=== PATIENT | female | born 1980 | race Caucasian/White ===

== ENCOUNTER 2016-07-18 08:16 | Emergency (ER) | payer BC ==
[2016-07-18] MEDS ORDERED: SODIUM CHLORIDE 0.9% 1,000 ML IV STA (08:32)
[2016-07-18] MEDS ORDERED: ONDANSETRON 4 MG/2 ML VIAL IVP STA (08:32)
--- NOTE | 2016-07-18 08:46 | ED ---
Abdominal Pain HPI - General Chief Complaint: Abdominal Pain Stated Complaint: abd pain Time Seen by Provider: 07/18/16 08:31 Source: patient, RN notes reviewed Mode of arrival: ambulatory Limitations: no limitations - History of Present Illness Initial Comments: 36-year-old female presents emergency Department chief complaint abdominal pain. Patient states she's had intermittent abdominal pain since Saturday. She states she gets a crampy feeling in her abdomen that causes diffuse pain. Patient states that she gets nauseated and has had some dry heaving/vomiting. 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 Patient denies fever, chills, melena or hematochezia. Patient's had no prior abdominal surgeries. Patient did take a test at home and states that it was negative. Patient denies any dysuria or hematuria. Patient denies any chest pain, shortness breath, flank pain. Patient states that she did try some Maalox which seemed to make her symptoms worse and she did not have a bowel movement. - Related Data Home Medications Medication Instructions Recorded Confirmed Polyethylene Glycol 3350 [Miralax] 17 gm PO DAILY PRN 07/18/16 07/18/16 Previous Rx's Medication Instructions Recorded Dicyclomine [Bentyl] 20 mg PO TID #30 tablet 07/18/16 Ondansetron Odt [Zofran Odt] 4 mg PO Q8HR PRN #10 tab 07/18/16 Allergies Allergy/AdvReac Type Severity Reaction Status Date / Time No Known Allergies Allergy Verified 07/18/16 09:01 Review of Systems ROS Statement: Those systems with pertinent positive or pertinent negative responses have been documented in the HPI. ROS Other: All systems not noted in ROS Statement are negative. Past Medical History Past Medical History: Vascular Disorder History of Any Multi-Drug Resistant Organisms: None Reported Past Surgical History: No Surgical Hx Reported Past Psychological History: No Psychological Hx Reported Smoking Status: Current every day smoker Past Alcohol Use History: Occasional Past Drug Use History: None Reported General Exam Limitations: no limitations General appearance: alert, in no apparent distress Head exam: Present: atraumatic, normocephalic, normal inspection Respiratory exam: Present: normal lung sounds bilaterally. Absent: respiratory distress, wheezes, rales, rhonchi, stridor Cardiovascular Exam: Present: regular rate, normal rhythm, normal heart sounds. Absent: systolic murmur, diastolic murmur, rubs, gallop, clicks GI/Abdominal exam: Present: soft, tenderness (Mild to moderate diffuse), normal bowel sounds. Absent: distended, guarding, rebound, rigid Back exam: Absent: CVA tenderness (R), CVA tenderness (L) Neurological exam: Present: alert, oriented X3, CN II-XII intact Skin exam: Present: warm, dry, intact, normal color. Absent: rash Course Vital Signs 07/18/16 08:22 Temperature 97.7 F Pulse Rate 97 Respiratory 18 Rate Blood Pressure 104/78 O2 Sat by Pulse 100 Oximetry Medical Decision Making - Medical Decision Making 36-year-old female presented emergency department for nausea vomiting abdominal cramping. Patient's lab work within almost. Patient does have some ketones consistent with dehydration. Patient was hydrated here and states that she's feeling better. Patient most likely has enteritis. Patient will be given Bentyl, Zofran. Return parameters were discussed. Patient agrees to plan. - Lab Data Result diagrams: 07/18/16 08:45 07/18/16 08:45 Lab Results 07/18/16 07/18/16 07/18/16 Range/Units 08:26 08:26 08:45 WBC (3.8-10.6) k/uL RBC (3.80-5.40) m/uL Hgb (11.4-16.0) gm/dL Hct (34.0-46.0) % MCV (80.0-100.0) fL MCH (25.0-35.0) pg MCHC (31.0-37.0) g/dL RDW (11.5-15.5) % Plt Count (150-450) k/uL Neutrophils % % Lymphocytes % % Monocytes % % Eosinophils % % Basophils % % Neutrophils # (1.3-7.7) k/uL Lymphocytes # (1.0-4.8) k/uL Monocytes # (0-1.0) k/uL Eosinophils # (0-0.7) k/uL Basophils # (0-0.2) k/uL Sodium 138 (137-145) mmol/L Potassium 4.8 (3.5-5.1) mmol/L Chloride 104 (98-107) mmol/L Carbon Dioxide 25 (22-30) mmol/L Anion Gap 9 mmol/L BUN 12 (7-17) mg/dL Creatinine 0.67 (0.52-1.04) mg/dL Est GFR (MDRD) Af Amer >60 (>60 ml/min/1.73 sqM) Est GFR (MDRD) Non-Af >60 (>60 ml/min/1.73 sqM) Glucose 90 (74-99) mg/dL Calcium 9.4 (8.4-10.2) mg/dL Total Bilirubin 0.6 (0.2-1.3) mg/dL AST 21 (14-36) U/L ALT 23 (9-52) U/L Alkaline Phosphatase 78 (38-126) U/L Total Protein 7.6 (6.3-8.2) g/dL Albumin 4.4 (3.5-5.0) g/dL Amylase 52 (30-110) U/L Lipase 49 (23-300) U/L Urine Color Yellow Urine Appearance Clear (Clear) Urine pH 5.5 (5.0-8.0) Ur Specific [place] 1.027 (1.001-1.035) Urine Protein 1+ H (Negative) Urine Glucose (UA) Negative (Negative) Urine Ketones 4+ H (Negative) Urine Blood Negative (Negative) Urine Nitrite Negative (Negative) Urine Bilirubin 1+ H (Negative) Urine Urobilinogen 2.0 (<2.0) mg/dL Ur Leukocyte Esterase Negative (Negative) Urine RBC <1 (0-5) /hpf Urine WBC 1 (0-5) /hpf Ur Squamous Epith Cells 1 (0-4) /hpf Urine Bacteria Rare H (None) /hpf Urine Mucus Few H (None) /hpf Urine HCG, Qual Not Detected (Not Detectd) 07/18/16 Range/Units 08:45 WBC 7.8 (3.8-10.6) k/uL RBC 4.92 (3.80-5.40) m/uL Hgb 14.7 (11.4-16.0) gm/dL Hct 44.3 (34.0-46.0) % MCV 90.2 (80.0-100.0) fL MCH 30.0 (25.0-35.0) pg MCHC 33.2 (31.0-37.0) g/dL RDW 13.2 (11.5-15.5) % Plt Count 163 (150-450) k/uL Neutrophils % 71 % Lymphocytes % 16 % Monocytes % 9 % Eosinophils % 2 % Basophils % 0 % Neutrophils # 5.6 (1.3-7.7) k/uL Lymphocytes # 1.2 (1.0-4.8) k/uL Monocytes # 0.7 (0-1.0) k/uL Eosinophils # 0.2 (0-0.7) k/uL Basophils # 0.0 (0-0.2) k/uL Sodium (137-145) mmol/L Potassium (3.5-5.1) mmol/L Chloride (98-107) mmol/L Carbon Dioxide (22-30) mmol/L Anion Gap mmol/L BUN (7-17) mg/dL Creatinine (0.52-1.04) mg/dL Est GFR (MDRD) Af Amer (>60 ml/min/1.73 sqM) Est GFR (MDRD) Non-Af (>60 ml/min/1.73 sqM) Glucose (74-99) mg/dL Calcium (8.4-10.2) mg/dL Total Bilirubin (0.2-1.3) mg/dL AST (14-36) U/L ALT (9-52) U/L Alkaline Phosphatase (38-126) U/L Total Protein (6.3-8.2) g/dL Albumin (3.5-5.0) g/dL Amylase (30-110) U/L Lipase (23-300) U/L Urine Color Urine Appearance (Clear) Urine pH (5.0-8.0) Ur Specific [place] (1.001-1.035) Urine Protein (Negative) Urine Glucose (UA) (Negative) Urine Ketones (Negative) Urine Blood (Negative) Urine Nitrite (Negative) Urine Bilirubin (Negative) Urine Urobilinogen (<2.0) mg/dL Ur Leukocyte Esterase (Negative) Urine RBC (0-5) /hpf Urine WBC (0-5) /hpf Ur Squamous Epith Cells (0-4) /hpf Urine Bacteria (None) /hpf Urine Mucus (None) /hpf Urine HCG, Qual (Not Detectd) Disposition Clinical Impression: Enteritis, Mild dehydration Disposition: HOME SELF-CARE Condition: Stable Instructions: Enteritis (ED) Additional Instructions: Please return to the Emergency Department if symptoms worsen or any other concerns. Prescriptions: Dicyclomine [Bentyl] 20 mg PO TID #30 tablet Ondansetron Odt [Zofran Odt] 4 mg PO Q8HR PRN #10 tab PRN Reason: Nausea Time of Disposition: 09:44
[2016-07-18 09:03] LABS: Basophils % (A) 0 %; CH 30.4; CHCM 33.9; Eosinophils # (A) 0.2 k/uL (0-0.7); Eosinophils % (A) 2 %; HCT 44.3 % (34.0-46.0); HGB 14.7 gm/dL (11.4-16.0); Luc # (Auto) 0.15; Luc % (Auto) 2; Lymphocytes # (A) 1.2 k/uL (1.0-4.8); Lymphocytes % (A) 16 %; MCHC 33.2 g/dL (31.0-37.0); MCV 90.2 fL (80.0-100.0); Mean Platelet Volume 7.6; Monocytes # (A) 0.7 k/uL (0-1.0); Monocytes % (A) 9 %; Neutrophils # (A) 5.6 k/uL (1.3-7.7); Neutrophils % (A) 71 %; RBC 4.92 m/uL (3.80-5.40); RDW 13.2 % (11.5-15.5); WBC 7.8 k/uL (3.8-10.6); WBC (Perox) 7.36
[2016-07-18 09:21] LABS: Appearance,Urine Clear (Clear); Bacteria,Urine Rare /hpf; Bilirubin,Urine 1+ (Negative); Glucose,Urine (UA) Negative (Negative); Ketones,Urine 4+ (Negative); Leukocyte Esterase,Urine Negative (Negative); Mucus,Urine Few /hpf; Nitrite,Urine Negative (Negative); PH, Urine 5.5 (5.0-8.0); Particle Count 9934; Protein,Urine 1+ (Negative); RBC,Urine <1 /hpf (0-5); Specific Gravity,Urine 1.027 (1.001-1.035); Squamous Epithelial Cell,Urine 1 /hpf (0-4); UA Billing (MACRO vs. MICRO) MICRO; WBC,Urine 1 /hpf (0-5)
[2016-07-18 09:22] LABS: ALT 23 U/L (9-52); AST 21 U/L (14-36); Alkaline Phosphatase 78 U/L (38-126); Amylase 52 U/L (30-110); Anion Gap 9 mmol/L; Blood Urea Nitrogen 12 mg/dL (7-17); Calcium 9.4 mg/dL (8.4-10.2); Carbon Dioxide 25 mmol/L (22-30); Chloride 104 mmol/L (98-107); Glucose 90 mg/dL (74-99); Non-African American GFR(MDRD) >60 (>60 ml/min/1.73 sqM); Potassium 4.8 mmol/L (3.5-5.1); Sodium 138 mmol/L (137-145); Total Bilirubin 0.6 mg/dL (0.2-1.3); Total Protein 7.6 g/dL (6.3-8.2)
--- NOTE | 2016-07-18 09:31 | XR ---
EXAMINATION TYPE: XR KUB DATE OF EXAM: 07/18/2016 9:24 AM COMPARISON: NONE HISTORY: Abdominal pain and vomiting TECHNIQUE: One view abdominal series FINDINGS: The osseous structures are intact. The bowel gas pattern is nonspecific. Lung bases are clear. Calc ification pelvis compatible with phleboliths. IMPRESSION: 1. Nonspecific abdomen.
[2016-07-18 09:54] VITALS: BP 106/67; PULSE 80; RESP 16; TEMP 98.7
== END 2016-07-18 09:53 | disposition home or self-care (01) ==
LOC: EC 08:16
DX: K52.9 Noninfective gastroenteritis and colitis, unspecified (principal); E86.0 Dehydration; F17.200 Nicotine dependence, unspecified, uncomplicated
CPT/HCPCS: 36415; 80053; 82150; 83690; 85025; 81001; 81025; 74000; 99284; 96374; 96361; J2405

== ENCOUNTER 2018-11-25 08:57 | Emergency (ER) | payer BC ==
[2018-11-25 09:10] VITALS: RESP 18
[2018-11-25] MEDS ORDERED: HYDROcodone/APAP 5-325MG 1 EACH TAB PO STA (09:57)
--- NOTE | 2018-11-25 10:22 | CT ---
EXAMINATION TYPE: CT lumbar spine wo con DATE OF EXAM: 11/25/2018 COMPARISON: None HISTORY: 38-year-old female Back injury TECHNIQUE: Contiguous axial scanning of the lumbar spine without IV contrast. Coronal and sagittal re constructions performed. CT DLP: 753.1 mGycm Automated exposure control for dose reduction was used. FINDINGS: Vertebral body heights are preserved and alignment is maintained. Facet arthropathy particularly at L3-L4. Bulging discs at both L4-L5 and L5-S1 contributing to mild spinal canal stenoses. On the left, there is mild neural foraminal stenosis at L5-S1. On the right, there is more mild to moderate neural foraminal stenosis at L5-S1. Disc material may ab ut the traversing S1 nerve roots on both sides. No prevertebral or paravertebral soft tissue abnormality seen. IMPRESSION: 1. NO VERTEBRAL COMPRESSION COLLAPSE OR MALALIGNMENT. 2. BULGING DISCS AT L4-L5 AND L5-S1. AT L5-S1, THIS CONTRIBUTES TO MILD TO MODERATE RIGHT AND MILD LE FT NEUROFORAMINAL STENOSIS. DISC MATERIAL MAY ABUT THE BILATERAL TRAVERSING S1 NERVE ROOTS AT THIS LE TANYA WELL. 3. MILD SPINAL CANAL STENOSES AT L4-L5 AND L5-S1.
[2018-11-25] MEDS ORDERED: ONDANSETRON ODT 4 MG TAB PO STA (11:22)
[2018-11-25] MEDS ORDERED: LIDOCAINE 5% PATCH TOPICAL STA (11:22)
--- NOTE | 2018-11-25 11:34 | ED ---
Back Pain HPI - General Chief Complaint: Back Pain/Injury Stated Complaint: BACK INJURY, FALL, CAN'T WALK Time Seen by Provider: 11/25/18 09:24 Source: patient Mode of arrival: wheelchair Limitations: no limitations - History of Present Illness Initial Comments: The patient is a 38-year-old female presents the emergency room with reported lower back pain. The patient does report to a history of chronic back pain. States that today she was in the shower when she coughed. She felt a pop in her left lower back. The pain got intense and radiated into the lateral aspect of her left leg. She denies any weakness, numbness or tingling. States that the pain was so severe that it did cause her to sustain a partial fall. She did catch herself on the way down however did hit the edge of the tub on the left hip. She denies any blunt head trauma. No other injuries sustained. Denies any bowel or bladder incontinence. Denies any saddle anesthesia. She took Motrin and Robaxin for her pain. States that it help her symptoms somewhat. She denies any abdominal pain. No changes in bowel or bladder habits. There are no other alleviating, precipitating or modifying factors - Related Data Home Medications Medication Instructions Recorded Confirmed Ibuprofen [Motrin] 800 mg PO DAILY PRN 11/25/18 11/25/18 Methocarbamol [Robaxin] 500 mg PO DAILY PRN 11/25/18 11/25/18 Previous Rx's Medication Instructions Recorded Hydrocodone/Acetaminophen [[place] 1 tab PO Q6HR PRN #12 tab 11/25/18 5-325] Ondansetron Odt [Zofran Odt] 4 mg PO Q8HR PRN #10 tab 11/25/18 Allergies Allergy/AdvReac Type Severity Reaction Status Date / Time No Known Allergies Allergy Verified 11/25/18 09:19 Review of Systems ROS Statement: Those systems with pertinent positive or pertinent negative responses have been documented in the HPI. ROS Other: All systems not noted in ROS Statement are negative. Past Medical History Past Medical History: No Reported History History of Any Multi-Drug Resistant Organisms: None Reported Past Surgical History: No Surgical Hx Reported Past Psychological History: No Psychological Hx Reported Smoking Status: Current some day smoker Past Alcohol Use History: Occasional Past Drug Use History: None Reported General Exam Limitations: no limitations General appearance: alert, in no apparent distress Head exam: Present: atraumatic, normocephalic, normal inspection Eye exam: Present: normal appearance, PERRL, EOMI. Absent: scleral icterus, conjunctival injection, periorbital swelling ENT exam: Present: normal exam, mucous membranes moist Neck exam: Present: normal inspection. Absent: tenderness, meningismus, lymphadenopathy Respiratory exam: Present: normal lung sounds bilaterally. Absent: respiratory distress, wheezes, rales, rhonchi, stridor Cardiovascular Exam: Present: regular rate, normal rhythm, normal heart sounds. Absent: systolic murmur, diastolic murmur, rubs, gallop, clicks GI/Abdominal exam: Present: soft, normal bowel sounds. Absent: distended, tenderness, guarding, rebound, rigid Extremities exam: Present: normal inspection, full ROM, normal capillary refill, other (5/5 muscle strength). Absent: tenderness, pedal edema, joint swelling, calf tenderness Back exam: Present: paraspinal tenderness (left sided L2-L5, tenderness to left SI joint. No step offs or deformities. positive straight leg raise left. 5/5 muscle strength in the b/l le. 2+ DP and PT pulses) Neurological exam: Present: alert, oriented X3, CN II-XII intact Psychiatric exam: Present: normal affect, normal mood Skin exam: Present: warm, dry, intact, normal color. Absent: rash Course Vital Signs 11/25/18 11/25/18 09:07 11:59 Temperature 98.0 F 98.2 F Pulse Rate 85 71 Respiratory 18 18 Rate Blood Pressure 108/74 111/75 O2 Sat by Pulse 98 98 Oximetry Medical Decision Making - Medical Decision Making Upon arrival the patient is placed into room 9. A thorough history and physical exam was performed. The patient has no focal neurologic deficits. I did discuss diagnosis, differential and treatment options. The patient did agree to a [place]. I also provided the patient something for nausea. I did recommend a CT of the patient's lumbar spine. Upon return of the results they are discuss the patient. CT demonstrates no vertebral compression or malalignment. Bulging disks at L4-L5 and L5-S1. at L5-S1 disc injury with some [id number] right and mild left neuroforaminal stenosis. The patient does feel improved with the [place]. I discussed medication treatment for her symptoms. The patient notes does agree to a short course of [place]. She does sign an opiate start talking form. She'll also be given a prescription for Zofran. I did apply a Lidoderm patch the patient's back. She will be discharged home and is to follow-up with Dr. Rutherford for further evaluation. If the patient has any new or worsening symptoms she should return to the emergency room. The patient was discharged home in stable condition Disposition Clinical Impression: Lumbar back pain with radiculopathy affecting left lower extremity, Sciatica, Strain of lumbar region Disposition: HOME SELF-CARE Condition: Stable Instructions (If sedation given, give patient instructions): Lumbar Radiculopathy (ED) Additional Instructions: Please follow-up with your primary care doctor in 2-4 days. Return to the emergency department for any new or worsening symptoms. Prescriptions: Hydrocodone/Acetaminophen [[place] 5-325] 1 tab PO Q6HR PRN #12 tab PRN Reason: Pain Ondansetron Odt [Zofran Odt] 4 mg PO Q8HR PRN #10 tab PRN Reason: Nausea Is patient prescribed a controlled substance at d/c from ED?: Yes When asked, does pt state using other controlled substances?: No If prescribed controlled substance>3 days was MAPS reviewed?: Prescribed <3 Days If opioid is for acute pain is fill amount 7 days or less?: Yes If Rx opioid, was Start Talking consent form obtained?: Yes Referrals: Vidal Gupta MD [Primary Care Provider] - 1-2 days Gayle Rutherford DO [Doctor of Osteopathic Medicine] - 1-2 days Time of Disposition: 11:34
[2018-11-25 14:07] VITALS: BP 111/75; PULSE 71; TEMP 98.2
== END 2018-11-25 12:01 | disposition home or self-care (01) ==
LOC: EC 08:57
DX: S39.012A Strain of muscle, fascia and tendon of lower back, initial encounter (principal); M51.17 Intervertebral disc disorders with radiculopathy, lumbosacral region; M48.061 Spinal stenosis, lumbar region without neurogenic claudication; F17.200 Nicotine dependence, unspecified, uncomplicated; X50.9XXA Other and unspecified overexertion or strenuous movements or postures, initial encounter; W01.198A Fall on same level from slipping, tripping and stumbling with subsequent striking against other object, initial encounter; Y93.E1 Activity, personal bathing and showering; Y92.002 Bathroom of unspecified non-institutional (private) residence as the place of occurrence of the external cause
CPT/HCPCS: 72131; 99284

== ENCOUNTER → 2019-02-16 | Outpatient (CLI) | payer BC ==
--- NOTE | 2019-02-16 09:30 | US ---
EXAMINATION TYPE: US venous doppler duplex LE DATE OF EXAM: 02/16/2019 9:14 AM COMPARISON: NONE CLINICAL HISTORY: M79.661 pain in JOBY limbs,M79.662. SIDE PERFORMED: TECHNIQUE: The lower extremity deep venous system is examined utilizing real time linear array sonog beto with graded compression, doppler sonography and color-flow sonography. VESSELS IMAGED: External Iliac Vein (EIV) Common Femoral Vein Deep Femoral Vein Greater Saphenous Vein * Femoral Vein Popliteal Vein Small Saphenous Vein * Proximal Calf Veins (* superficial vessels) Right Leg: Negative for DVT Left Leg: Negative for DVT IMPRESSION: 1. Bilateral lower extremity ultrasound negative for deep venous thrombosis
== END | disposition home or self-care (01) ==
LOC: RADUSWWP 08:42
PROVIDERS: ATTEND Family Medicine
DX: M79.661 Pain in right lower leg (principal)
CPT/HCPCS: 93970

== ENCOUNTER 2019-10-07 04:08 | Emergency (ER) | payer BC ==
--- NOTE | 2019-10-07 04:22 | ED ---
Recheck HPI - General Chief Complaint: Nausea/Vomiting/Diarrhea Stated Complaint: Dizziness, nausea Time Seen by Provider: 10/07/19 04:15 Source: patient, RN notes reviewed, old records reviewed Mode of arrival: ambulatory Limitations: no limitations - History of Present Illness Initial Comments: This is a 31-year-old female DF for evaluation persistent nausea vomiting occasional body aches and pains. Recently off of a 10 day vacation the laceration violence. No bony or travel republican there was about 10 are feeling the same symptoms. She denies any fevers. Maybe a little flushed and sweating. Denies significant drug or alcohol abuse. No blood in the vomit or diarrhea MD Complaint: other (Patient just not feeling good regarding abdominal pain was seen at [facility] yesterday) Initial Visit For: other (Nausea and vomiting) Returns Today for: persistent/worsening pain related to initial visit Symptoms Since Prior Visit: worsening pain Associated Symptoms: chills Treatments Prior to Arrival: other (Patient seen at [facility] was given covert 19 test) - Related Data Home Medications Medication Instructions Recorded Confirmed Ibuprofen [Motrin] 800 mg PO DAILY PRN 11/25/18 11/25/18 Methocarbamol [Robaxin] 500 mg PO DAILY PRN 11/25/18 11/25/18 Previous Rx's Medication Instructions Recorded Hydrocodone/Acetaminophen [[place] 1 tab PO Q6HR PRN #12 tab 11/25/18 5-325] Ondansetron Odt [Zofran Odt] 4 mg PO Q8HR PRN #10 tab 11/25/18 Diazepam [Valium] 5 mg PO Q8H PRN 3 Days #9 tab 10/07/19 Allergies Allergy/AdvReac Type Severity Reaction Status Date / Time No Known Allergies Allergy Verified 10/07/19 04:16 Review of Systems ROS Statement: Those systems with pertinent positive or pertinent negative responses have been documented in the HPI. ROS Other: All systems not noted in ROS Statement are negative. Past Medical History Past Medical History: No Reported History History of Any Multi-Drug Resistant Organisms: None Reported Past Surgical History: No Surgical Hx Reported Past Psychological History: No Psychological Hx Reported Smoking Status: Current every day smoker Past Alcohol Use History: Occasional Past Drug Use History: None Reported General Exam Limitations: no limitations General appearance: alert, in no apparent distress, anxious Head exam: Present: atraumatic, normocephalic, normal inspection Eye exam: Present: normal appearance, PERRL, EOMI. Absent: scleral icterus, conjunctival injection, periorbital swelling ENT exam: Present: normal exam, mucous membranes moist Neck exam: Present: normal inspection. Absent: tenderness, meningismus, lymphadenopathy Respiratory exam: Present: normal lung sounds bilaterally. Absent: respiratory distress, wheezes, rales, rhonchi, stridor Cardiovascular Exam: Present: regular rate, normal rhythm, normal heart sounds. Absent: systolic murmur, diastolic murmur, rubs, gallop, clicks GI/Abdominal exam: Present: soft, normal bowel sounds. Absent: distended, tenderness, guarding, rebound, rigid Extremities exam: Present: normal inspection, full ROM, normal capillary refill. Absent: tenderness, pedal edema, joint swelling, calf tenderness Back exam: Present: normal inspection Neurological exam: Present: alert, oriented X3, CN II-XII intact Psychiatric exam: Present: normal affect, normal mood Skin exam: Present: warm, dry, intact, normal color. Absent: rash Course Vital Signs 10/07/19 10/07/19 10/07/19 04:10 06:58 07:44 Temperature 98 F 98.3 F 97.9 F Pulse Rate 85 88 84 Respiratory 18 18 15 Rate Blood Pressure 120/80 111/67 132/80 O2 Sat by Pulse 99 96 98 Oximetry - Reevaluation(s) Reevaluation #1: Medical records reviewed Patient symptoms are significantly improved Patient has no current pain does admit to travel history but denies fever Medical Decision Making - Medical Decision Making 39 female DF for evaluation patient has persistent nausea vomiting and diarrhea. Feeling better with hydration here in the ER. Patient's okay for discharge home - Lab Data Result diagrams: 10/07/19 05:43 10/07/19 05:43 Lab Results 10/07/19 10/07/19 10/07/19 Range/Units 05:43 05:43 05:52 WBC 7.3 (3.8-10.6) k/uL RBC 4.82 (3.80-5.40) m/uL Hgb 14.4 (11.4-16.0) gm/dL Hct 44.4 (34.0-46.0) % MCV 92.1 (80.0-100.0) fL MCH 30.0 (25.0-35.0) pg MCHC 32.5 (31.0-37.0) g/dL RDW 13.5 (11.5-15.5) % Plt Count 124 L (150-450) k/uL Neutrophils % 79 % Lymphocytes % 13 % Monocytes % 5 % Eosinophils % 1 % Basophils % 0 % Neutrophils # 5.8 (1.3-7.7) k/uL Lymphocytes # 1.0 (1.0-4.8) k/uL Monocytes # 0.3 (0-1.0) k/uL Eosinophils # 0.1 (0-0.7) k/uL Basophils # 0.0 (0-0.2) k/uL Sodium 138 (137-145) mmol/L Potassium 4.0 (3.5-5.1) mmol/L Chloride 111 H (98-107) mmol/L Carbon Dioxide 18 L (22-30) mmol/L Anion Gap 9 mmol/L BUN 5 L (7-17) mg/dL Creatinine 0.49 L (0.52-1.04) mg/dL Est GFR (CKD-EPI)AfAm >90 (>60 ml/min/1.73 sqM) Est GFR (CKD-EPI)NonAf >90 (>60 ml/min/1.73 sqM) Glucose 98 (74-99) mg/dL Calcium 8.5 (8.4-10.2) mg/dL Phosphorus 2.8 (2.5-4.5) mg/dL Magnesium 1.8 (1.6-2.3) mg/dL Total Bilirubin 0.6 (0.2-1.3) mg/dL AST 31 (14-36) U/L ALT 17 (4-34) U/L Alkaline Phosphatase 80 (38-126) U/L Lactate Dehydrogenase 426 (313-618) U/L Creatine Kinase 54 (30-135) U/L C-Reactive Protein <5.0 (<10.0) mg/L Total Protein 6.6 (6.3-8.2) g/dL Albumin 3.9 (3.5-5.0) g/dL Urine Color Light Yellow Urine Appearance Clear (Clear) Urine pH 6.0 (5.0-8.0) Ur Specific [place] 1.005 (1.001-1.035) Urine Protein Negative (Negative) Urine Glucose (UA) Negative (Negative) Urine Ketones 2+ H (Negative) Urine Blood Negative (Negative) Urine Nitrite Negative (Negative) Urine Bilirubin Negative (Negative) Urine Urobilinogen <2.0 (<2.0) mg/dL Ur Leukocyte Esterase Negative (Negative) Urine HCG, Qual (Not Detectd) 10/07/19 Range/Units 05:52 WBC (3.8-10.6) k/uL RBC (3.80-5.40) m/uL Hgb (11.4-16.0) gm/dL Hct (34.0-46.0) % MCV (80.0-100.0) fL MCH (25.0-35.0) pg MCHC (31.0-37.0) g/dL RDW (11.5-15.5) % Plt Count (150-450) k/uL Neutrophils % % Lymphocytes % % Monocytes % % Eosinophils % % Basophils % % Neutrophils # (1.3-7.7) k/uL Lymphocytes # (1.0-4.8) k/uL Monocytes # (0-1.0) k/uL Eosinophils # (0-0.7) k/uL Basophils # (0-0.2) k/uL Sodium (137-145) mmol/L Potassium (3.5-5.1) mmol/L Chloride (98-107) mmol/L Carbon Dioxide (22-30) mmol/L Anion Gap mmol/L BUN (7-17) mg/dL Creatinine (0.52-1.04) mg/dL Est GFR (CKD-EPI)AfAm (>60 ml/min/1.73 sqM) Est GFR (CKD-EPI)NonAf (>60 ml/min/1.73 sqM) Glucose (74-99) mg/dL Calcium (8.4-10.2) mg/dL Phosphorus (2.5-4.5) mg/dL Magnesium (1.6-2.3) mg/dL Total Bilirubin (0.2-1.3) mg/dL AST (14-36) U/L ALT (4-34) U/L Alkaline Phosphatase (38-126) U/L Lactate Dehydrogenase (313-618) U/L Creatine Kinase (30-135) U/L C-Reactive Protein (<10.0) mg/L Total Protein (6.3-8.2) g/dL Albumin (3.5-5.0) g/dL Urine Color Urine Appearance (Clear) Urine pH (5.0-8.0) Ur Specific [place] (1.001-1.035) Urine Protein (Negative) Urine Glucose (UA) (Negative) Urine Ketones (Negative) Urine Blood (Negative) Urine Nitrite (Negative) Urine Bilirubin (Negative) Urine Urobilinogen (<2.0) mg/dL Ur Leukocyte Esterase (Negative) Urine HCG, Qual Not Detected (Not Detectd) Disposition Clinical Impression: Dehydration, Gastroenteritis Disposition: HOME SELF-CARE Condition: Good Instructions (If sedation given, give patient instructions): Acute Nausea and Vomiting (ED) Prescriptions: Diazepam [Valium] 5 mg PO Q8H PRN 3 Days #9 tab PRN Reason: Nausea Is patient prescribed a controlled substance at d/c from ED?: No Referrals: Vidal Gupta MD [Primary Care Provider] - 1-2 days
[2019-10-07] MEDS ORDERED: ONDANSETRON 4 MG/2 ML VIAL IVP STA (04:41)
[2019-10-07] MEDS ORDERED: PANTOPRAZOLE 40 MG/10 ML VIAL IVP STA (04:41)
[2019-10-07] MEDS ORDERED: KETOROLAC 30 MG/ML 1 ML VIAL IVP STA (04:41)
[2019-10-07] MEDS ORDERED: SODIUM CHLORIDE 0.9% 1,000 ML IV STA (04:41)
[2019-10-07 05:49] LABS: Basophils % (A) 0 %; Eosinophils # (A) 0.1 k/uL (0-0.7); Eosinophils % (A) 1 %; HCT 44.4 % (34.0-46.0); HGB 14.4 gm/dL (11.4-16.0); Lymphocytes % (A) 13 %; MCHC 32.5 g/dL (31.0-37.0); MCV 92.1 fL (80.0-100.0); Mean Platelet Volume 8.7; Monocytes # (A) 0.3 k/uL (0-1.0); Monocytes % (A) 5 %; Neutrophils # (A) 5.8 k/uL (1.3-7.7); Neutrophils % (A) 79 %; Platelet Count 124 k/uL (150-450); RBC 4.82 m/uL (3.80-5.40); RDW 13.5 % (11.5-15.5); WBC 7.3 k/uL (3.8-10.6)
[2019-10-07 05:58] LABS: Appearance,Urine Clear (Clear); Bilirubin,Urine Negative (Negative); Blood,Urine Negative (Negative); Color,Urine Light Yellow; Glucose,Urine (UA) Negative (Negative); Ketones,Urine 2+ (Negative); Leukocyte Esterase,Urine Negative (Negative); Nitrite,Urine Negative (Negative); Protein,Urine Negative (Negative); Specific Gravity,Urine 1.005 (1.001-1.035); Urobilinogen,Urine <2.0 mg/dL (<2.0)
[2019-10-07 06:00] LABS: ALT 17 U/L (4-34); AST 31 U/L (14-36); African American GFR (CKD) >90 (>60 ml/min/1.73 sqM); Albumin 3.9 g/dL (3.5-5.0); Alkaline Phosphatase 80 U/L (38-126); Anion Gap 9 mmol/L; Blood Urea Nitrogen 5 mg/dL (7-17); C Reactive Protein <5.0 mg/L (<10.0); Calcium 8.5 mg/dL (8.4-10.2); Carbon Dioxide 18 mmol/L (22-30); Chloride 111 mmol/L (98-107); Creatine Kinase 54 U/L (30-135); Glucose 98 mg/dL (74-99); LDH 426 U/L (313-618); Magnesium 1.8 mg/dL (1.6-2.3); Non-African American GFR(CKD) >90 (>60 ml/min/1.73 sqM); Phosphorus 2.8 mg/dL (2.5-4.5); Sodium 138 mmol/L (137-145); Total Bilirubin 0.6 mg/dL (0.2-1.3); Total Protein 6.6 g/dL (6.3-8.2)
[2019-10-07] MEDS ORDERED: DIAZEPAM 5 MG/ML 2 ML INJ IVP STA (06:42)
[2019-10-07] MEDS ORDERED: ONDANSETRON 4 MG ODT STARTER PACK 2 TAB BTL PO STA (07:01)
[2019-10-07 07:45] VITALS: BP 132/80; PULSE 84; RESP 15; TEMP 97.9
== END 2019-10-07 07:44 | disposition home or self-care (01) ==
LOC: EC 04:08
DX: K52.9 Noninfective gastroenteritis and colitis, unspecified (principal); E86.0 Dehydration; F17.200 Nicotine dependence, unspecified, uncomplicated
CPT/HCPCS: 80053; 82550; 83615; 83735; 84100; 85025; 86140; 81025; 99284; 96374; 96375 ×3; 96361; J3360; J2405; J1885; S0119; C9113

== ENCOUNTER → 2020-04-20 | Outpatient (CLI) | payer BC ==
--- NOTE | 2020-04-20 11:12 | XR ---
EXAMINATION TYPE: XR chest 2V DATE OF EXAM: 04/20/2020 COMPARISON: None HISTORY: 39-year-old female with dizziness. R55.9, R06.02 TECHNIQUE: Frontal and lateral views FINDINGS: The cardiomediastinal silhouette, aorta, and pulmonary vasculature are within normal limits. Hazy low er lung densities related to overlying soft tissue. Otherwise, lungs and pleural spaces are clear. IMPRESSION: No acute cardiopulmonary process.
== END ==
LOC: RADXRMAIN 08:53
PROVIDERS: ATTEND Family Medicine
DX: R06.02 Shortness of breath (principal); R55 Syncope and collapse; I49.9 Cardiac arrhythmia, unspecified
CPT/HCPCS: 71046

== ENCOUNTER → 2020-05-09 | Outpatient (CLI) | payer BC ==
--- NOTE | 2020-05-09 17:23 | XR ---
EXAMINATION TYPE: XR chest 2V DATE OF EXAM: 05/09/2020 COMPARISON: NONE HISTORY: Chest pain. Back pain TECHNIQUE: 2 views FINDINGS: Heart and mediastinum are normal. Lungs are clear. Diaphragm is normal. Bony thorax appears normal. IMPRESSION: Normal chest. No change.
== END ==
LOC: RADXRMAIN 16:37
PROVIDERS: ATTEND Family Medicine
DX: R07.9 Chest pain, unspecified (principal); M54.9 Dorsalgia, unspecified
CPT/HCPCS: 71046

== ENCOUNTER → 2020-07-15 | Outpatient (CLI) | payer BC ==
--- NOTE | 2020-07-15 09:54 | MR ---
EXAMINATION TYPE: MR lspine/sacrum wo con DATE OF EXAM: 07/15/2020 COMPARISON: MRI lumbar spine and sacrum June 15, 2014 HISTORY: Low back pain into lower extremities TECHNIQUE: Multiplanar, multisequence imaging of the lumbar spine is performed without IV contrast. FINDINGS: L-SPINE: Sagittal images of the lumbar spine show vertebral body heights and alignment to remain stable. Sligh t grade 1 retrolisthesis L5 on S1 remains present There is persistent multilevel disc desiccation gre atest in lower lumbar spine. Disc space heights maintained. The conus medullaris remain stable in po sition and normal in signal and thinning superior L2 level. The bone marrow signal intensity is with in normal limits. Axial images show T12-L1 and L1-L2 levels to remain within normal limits. Axial images at L2-L3 level show mild broad disc bulge minimally effaces the anterior thecal sac, no significant change from prior. Axial images at L3-L4 level appear within normal limits. At L4-5 there is posterior annular tear and broad disc bulge with central disc protrusion component e ffacing anterior thecal sac. Patent bilateral neural foramina. No significant change from prior. At L5-S1 there is persistent broad-based left paracentral disc protrusion effacing anterolateral thec al sac. Additionally there is a right lateral disc bulge both causing mild to moderate anterior infer ior neural foraminal narrowing and encroachment along the anterior-inferior margin of bilateral L5 ne rves. No significant change from prior. Enlarging 1.3 cm round T2 hyperintense lesion right kidney axial image 18 favors benign thin-walled c yst. IMPRESSION: Multilevel degenerative changes greatest in lower lumbar spine, no significant progressio n from prior. Sacrum: Sacral alar maintained bilaterally. Sacroiliac joints are preserved. No suspicious edema. Sacral tien l maintained. Both ovaries normal in size. No concerning pelvic fluid collection. Anteverted uterus. Impression: Unremarkable MRI sacrum. No significant change from prior.
== END | disposition home or self-care (01) ==
LOC: RADMRIMAIN 08:39
PROVIDERS: ATTEND Nurse Practitioner Women's Health
DX: M51.26 Other intervertebral disc displacement, lumbar region (principal); M99.73 Connective tissue and disc stenosis of intervertebral foramina of lumbar region
CPT/HCPCS: 72148; 72195

== ENCOUNTER → 2022-01-19 | Outpatient (CLI) | payer OTHER ==
--- NOTE | 2022-01-19 08:37 | MM ---
Reason for Exam: Clinical finding. Patient History: Menarche at age 13. First Full-Term at age 23. Premenopausal. Maternal aunt had breast cancer, age 65. Risk Values: Doris 5 year model risk: 0.5%. NCI Lifetime model risk: 9.0%. Tissue Density: The breast tissue is heterogeneously dense. This may lower the sensitivity of mammography. Findings: Analyzed By CAD. Noted are 2 indeterminate clusters of microcalcifications upper central right breast approximately 6.3 cm from the nipple as well as upper outer right breast approximately 10 cm from the nipple. Stereotactic core biopsy is recommended. Overall Assessment: Suspicious, BI-RAD 4 Management: Stereotactic Core Biopsy of the right breast. A clinical breast exam by your physician is recommended on an annual basis and results should be correlated with mammographic findings. This exam should not preclude additional follow-up of suspicious palpable abnormalities. Results were given to the patient verbally at the time of exam. Electronically signed and approved by: Dale Dorantes M.D. Radiologis
== END | disposition home or self-care (01) ==
LOC: RADMAMWWP 07:33
PROVIDERS: ATTEND Family Medicine
DX: N60.11 Diffuse cystic mastopathy of right breast (principal); N64.89 Other specified disorders of breast; Z80.3 Family history of malignant neoplasm of breast
CPT/HCPCS: 77062; 77066

== ENCOUNTER → 2022-01-29 | Day surgery (SDC) | payer OTHER ==
[2022-01-29 10:11] VITALS: RESP 16
[2022-01-29 11:43] VITALS: BP 127/87; PULSE 92; TEMP 98
--- NOTE | 2022-02-05 08:39 | MM ---
Risk Values: Doris 5 year model risk: 0.5%. NCI Lifetime model risk: 9.0%. Prior Study Comparison: 01/19/2022 Bilateral MG 3D diag mammo w/cad [facility], [facility]. Pathology Description: Marker Left Behind. Approach: CC FA Needle Type: Eviva Cores: 7 Skin Nicks: 1 Gauge: 9 The 2 groups of microcalcifications in question within the right breast were targeted by the undersigned. Procedure was performed by the undersigned. Informed consent was obtained and all of the patients questions were answered. The standard sterile technique was utilized and appropriate local anesthesia was obtained with 1% lidocaine at each site labeled A and B. Mammotome probe was advanced and multiple core samples were obtained from each sites and sent to pathology for interpretation. Microclip markers were deployed at the site of biopsy. Post procedural mammogram demonstrates appropriate deployment of radiopaque clip markers. The patient tolerated the procedure well and left the department in stable condition. Pathology results are pending. Impression: Successful stereotactic core biopsy right breast at 2 sites. Pathology Results: Result: Benign, Fibrocystic change. A. RIGHT BREAST, SITE A, STEREOTACTIC NEEDLE CORE BIOPSY: Fibrocystic changes including focal fibroadenomatoid hyperplasia with calcifications. B. RIGHT BREAST, SITE B, STEREOTACTIC NEEDLE CORE BIOPSY: Fibrocystic changes including cysts and sclerosing adenosis with calcifications, apocrine metaplasia and columnar cell change/columnar cell hyperplasia. Pathology Description: Marker Left Behind. Approach: CC FA Needle Type: Eviva Cores: 9 Skin Nicks: 1 Gauge: 9 right cc from above middle of the breast. Overall Assessment: Benign Management: Diagnostic Mammogram of the right breast in 6 months. Electronically signed and approved by: Dale Dorantes M.D. Radiologis
== END ==
LOC: RADMAMWWP 09:57
PROVIDERS: ATTEND Family Medicine
DX: N60.81 Other benign mammary dysplasias of right breast (principal); N60.21 Fibroadenosis of right breast; N60.01 Solitary cyst of right breast; R92.1 Mammographic calcification found on diagnostic imaging of breast
CPT/HCPCS: 88305; 19081; 19082; A4648; J2001

== ENCOUNTER → 2022-12-13 | Outpatient (CLI) | payer BC, OTHER ==
--- NOTE | 2022-12-13 19:13 | XR ---
EXAMINATION TYPE: XR forearm 2 views RT, XR wrist limited 2 views RT DATE OF EXAM: 12/13/2022 COMPARISON: NONE HISTORY: 42-year-old female M79.631 Pain right forearm FINDINGS: Right forearm: The elbow articulation is grossly intact. No elbow joint effusion. There may be some mild subcutaneou s soft tissue swelling along the dorsal aspect of the forearm. No underlying acute fracture. No perio stitis or osteolysis. Right wrist: The radiocarpal joint is intact. Slight positive ulnar variance is noted. Metacarpal compartment is i ntact. No acute fracture, subluxation, dislocation. IMPRESSION: 1. Right forearm: There may be some mild soft tissue swelling present. Clinically correlate. No acute osseous abnormality seen. 2. Right wrist: Slight positive ulnar variance that may contribute to ulnar impaction syndrome. Corre late for any chronic ulnar-sided wrist pain. No acute osseous abnormality seen.
== END | disposition home or self-care (01) ==
LOC: RADXRMAIN 13:12
PROVIDERS: ATTEND Family Medicine
DX: M79.631 Pain in right forearm (principal)

== ENCOUNTER → 2023-04-10 | Outpatient (CLI) | payer BC, OTHER ==
--- NOTE | 2023-04-11 12:22 | XR ---
EXAMINATION TYPE: XR chest 2V, XR shoulder complete 3 views LT, XR scapula 2 views LT DATE OF EXAM: 04/10/2023 COMPARISON: 05/09/2020 HISTORY: 42-year-old female left-sided pain in shoulder radiating towards the lower ribs. S46.912A S TRAIN UNSP MUSC/FASC/TEND AT LDR/UP AR FINDINGS: Chest: The cardiomediastinal silhouette, aorta, and pulmonary vasculature are within normal limits. Lungs an d pleural spaces are clear. Left shoulder: AC joint appears congruent and intact. Subacromial space is preserved. No tendinous or bursal calcifi cations. No acute fracture, subluxation, dislocation. Left scapula: No acute fracture. No periostitis or osteolysis seen. COMBINED IMPRESSION: 1. Chest: No acute cardiopulmonary process. 2. Left shoulder and left scapula: No acute osseous abnormality seen.
== END | disposition home or self-care (01) ==
LOC: RADXRMAIN 17:37
PROVIDERS: ATTEND Family Medicine
DX: S46.912A Strain of unspecified muscle, fascia and tendon at shoulder and upper arm level, left arm, initial encounter (principal); X58.XXXA Exposure to other specified factors, initial encounter
CPT/HCPCS: 71046

== ENCOUNTER → 2023-06-07 | Outpatient (CLI) | payer BC, OTHER ==
--- NOTE | 2023-06-07 15:03 | US ---
EXAMINATION TYPE: US venous doppler duplex LE RT DATE OF EXAM: 06/07/2023 2:36 PM COMPARISON: NONE CLINICAL INDICATION: Female, 43 years old with history of M79.661 PAIN IN RIGHT LOWER LEG M79.651 SENAIT N IN RI; Rt post calf pain SIDE PERFORMED: Right TECHNIQUE: The lower extremity deep venous system is examined utilizing real time linear array sonog beto with graded compression, doppler sonography and color-flow sonography. VESSELS IMAGED: Common Femoral Vein Deep Femoral Vein Greater Saphenous Vein * Femoral Vein Popliteal Vein Small Saphenous Vein * Proximal Calf Veins (* superficial vessels) patients area of pain at the posterior mid calf scanned. There is a hypoechoic area adjacent to muscl e fascia Right Leg: Negative for DVT IMPRESSION: 1 right lower extremity ultrasound negative for deep venous thrombosis.
== END | disposition home or self-care (01) ==
LOC: RADUSWWP 13:34
PROVIDERS: ATTEND Family Medicine
DX: M79.661 Pain in right lower leg (principal); M79.651 Pain in right thigh